=== PATIENT | female | born 1970 | race Caucasian/White ===

== ENCOUNTER 2020-01-26 08:10 | Outpatient (CLI) | payer BC ==
--- NOTE | 2020-01-26 10:12 | RAD ---
XR Hip Lt 2-3 View INDICATION: Mild left hip pain with taking and popping normal limits when articulating the left leg COMPARISON: CT abdomen pelvis dated February 12, 2014 FINDINGS: Bones: No acute osseous abnormality. Bone mineralization appears within normal limits. Small scleroti c lesion within the left pubic body is stable likely reflecting a small bone island. Hip joint: Radiographically normal. SI joints and symphysis pubis: Radiographically normal. Intrapelvic contents: Visualized bowel gas pattern is within normal limits. Small phleboliths within the lower pelvis. Surrounding soft tissues: Radiographically normal. IMPRESSION: 1. No acute osseous abnormality.
== END 2020-01-26 08:11 | disposition home or self-care (01) ==
LOC: SCSRAD 08:10
PROVIDERS: ATTEND Student in an Organized Health Care Education/Training Program
DX: M25.552 Pain in left hip (principal)

== ENCOUNTER 2020-06-19 06:00 | Day surgery (SDC) | payer BC ==
[2020-06-18 10:53] VITALS: BMI 26.9
[2020-06-19] MEDS ORDERED: cefOXitin Sodium/Dextrose 2 GM/50 ML BAG ONE (06:17)
[2020-06-19] MEDS ORDERED: Fentanyl 100 MCG/2 ML VIAL ONE ×2 (06:43→08:53)
[2020-06-19] MEDS ORDERED: Bupivacaine 0.25% HCL 30 ML VIAL ONE (06:48)
[2020-06-19] MEDS ORDERED: XYLOCAINE 2%-EPI 1:100,000 20 ML VIAL ONE (06:48)
[2020-06-19] MEDS ORDERED: Lidocaine 4% Topical Sol 50 ML BOT ONE (06:54)
[2020-06-19] MEDS ORDERED: Dexamethasone 20 MG/5 ML VIAL ONE (09:33)
[2020-06-19] MEDS ORDERED: PROPOFOL 200 MG/20 ML VIAL ONE (09:33)
[2020-06-19] MEDS ORDERED: Glycopyrrolate 0.2 MG/ML 5 ML SYRINGE ONE (09:33)
[2020-06-19] MEDS ORDERED: Rocuronium Bromide 10 MG/ML (10ML VIAL) ONE (09:33)
[2020-06-19] MEDS ORDERED: PHENYLEPHRINE-NS 100 MCG/ML 10 ML SYRINGE ONE (09:33)
[2020-06-19] MEDS ORDERED: Ondansetron PF 4 MG/2 ML Vial ONE (09:33)
[2020-06-19] MEDS ORDERED: Ketorolac Tromethamine 30 MG/ML VIAL ONE (09:33)
[2020-06-19] MEDS ORDERED: Lidocaine 1% PF 5 ML VIAL ONE (09:33)
--- NOTE | 2020-06-19 09:55 | OP ---
DATE OF PROCEDURE: 06/19/2020 PREOPERATIVE DIAGNOSIS: Symptomatic cholelithiasis. PROCEDURES PERFORMED: Laparoscopic cholecystectomy and liver biopsy. INDICATIONS: She is a 49-year-old female, who has been having episodic right upper quadrant pain, radiating to back, associated with nausea. Ultrasound showed cholelithiasis. FINDINGS: There was about 2 cm mass that was located between the gallbladder and the falciform ligament on the anterior aspect of the right lobe of the liver. She also had multiple pretty large gallstones within the gallbladder. DESCRIPTION OF PROCEDURE: After informed consent was obtained, the patient was taken to the operating room and given general endotracheal anesthesia. She was placed in supine position. Abdomen was prepped and draped in usual fashion. Local anesthesia was infiltrated subcutaneously and deep, a subumbilical incision was performed. Subcu divided sharply. The fascia was grasped and 2 stay sutures of 0 Vicryl placed through each side of midline. Midline incised. Digital palpation revealed no local adhesions. A blunt 12 mm trocar inserted. Pneumoperitoneum was created to a pressure of 15 mmHg. A 0-degree laparoscope inserted under direct vision, three 5-mm ports were placed subcostally. The gallbladder was grasped, advanced superiorly. The peritoneum lysed distally to expose the cystic duct and artery in critical view. The duct and artery were triply ligated with hemoclips and divided. The gallbladder removed from its fossa utilizing electrocautery, removed from the abdomen through the umbilical port. Hemostasis was assured. As far as the mass goes, I was not quite sure how significant it was. I wound up doing a wedge biopsy of this using cold biopsy forceps, and the gallbladder and this mass were placed in an Endosac, removed from the abdomen through the umbilical port and sent to Pathology for further analysis. Hemostasis was achieved with electrocautery. The abdomen was irrigated and irrigation fluid removed. Trocars and retractors were removed. The fascia was closed with interrupted 0 Vicryl suture. The skin was closed with interrupted 4-0 Rapide. Dermabond applied. The patient tolerated the procedure well, transferred to Recovery in good condition. Sponge and needle count verified correct x2. Job ID: [id number]
[2020-06-19] MEDS ORDERED: HYDROcodone/Acetaminophen 5/325 mg Tablet ONE (10:31)
== END 2020-06-19 10:57 | disposition home or self-care (01) ==
LOC: SDC 06:00
PROVIDERS: ATTEND Surgery
DX: K80.10 Calculus of gallbladder with chronic cholecystitis without obstruction (principal); K76.89 Other specified diseases of liver; F32.9 Major depressive disorder, single episode, unspecified; E78.5 Hyperlipidemia, unspecified; Z79.899 Other long term (current) drug therapy; Z91.018 Allergy to other foods
CPT/HCPCS: 88304; 88305; J0694; J1100; J1885; J2405; J2704; J3010; S0020